=== PATIENT | female | born 1980 | race Caucasian/White ===

== ENCOUNTER → 2017-03-10 | Outpatient (CLI) | payer OTHER | LOC: FIMAGING 16:15 | PROVIDERS: ATTEND Internal Medicine Hematology & Oncology | DX: Z12.31 Encounter for screening mammogram for malignant neoplasm of breast (principal); Z80.3 Family history of malignant neoplasm of breast | CPT/HCPCS: G0202 ==

== ENCOUNTER → 2018-03-19 | Outpatient (CLI) | payer OTHER | LOC: FIMAGING 09:48 | PROVIDERS: ATTEND Internal Medicine Hematology & Oncology | DX: Z12.31 Encounter for screening mammogram for malignant neoplasm of breast (principal); Z80.3 Family history of malignant neoplasm of breast ==

== ENCOUNTER 2018-10-28 11:27 | Outpatient (CLI) | payer OTHER ==
[2018-10-28] MEDS ORDERED: MIDAZOLAM 2 MG/2 ML VIAL IVP PRN (11:40)
[2018-10-28] MEDS ORDERED: fentaNYL 100 MCG/2 ML INJ IVP PRN (11:40)
[2018-10-28] MEDS ORDERED: MEPERIDINE 25 MG/ML SYR IVP PRN (11:40)
[2018-10-28] MEDS ORDERED: ALTEPLASE 2 MG VIAL IVP PRN (11:40)
[2018-10-28] MEDS ORDERED: FLUMAZENIL 0.5 MG/5 ML MDV IVP PRN (11:40)
[2018-10-28] MEDS ORDERED: HEPARIN 10,000 UNIT/10 ML MDV (1,000 UNIT/ML) IVP PRN (11:40)
[2018-10-28] MEDS ORDERED: NALOXONE HCL 0.4 MG/ML INJ IVP PRN (11:40)
[2018-10-28] MEDS ORDERED: NS 1,000 ML IV SCH (11:45)
[2018-10-28] MEDS ORDERED: fentaNYL 100 MCG/2 ML INJ ONE ×2 (11:55→13:58)
[2018-10-28] MEDS ORDERED: FLUMAZENIL 0.5 MG/5 ML MDV IVP ONE (11:55)
[2018-10-28] MEDS ORDERED: NALOXONE HCL 0.4 MG/ML INJ ONE (11:55)
[2018-10-28] MEDS ORDERED: MIDAZOLAM 2 MG/2 ML VIAL ONE ×2 (11:55→13:58)
--- NOTE | 2018-10-28 12:56 | PDGENHP ---
History & Physical Chief Complaint: family hx breast cancer, claustrophobic Cardiorespiratory Assessment: regular heart rate, clear lungs
--- NOTE | 2018-10-28 12:56 | PDPROPOC ---
Sedation Plan of Care Sedation Plan of Care: vital signs stable, mental status noted, patient educated of risks, benefits, alternatives, patient can tolerate sedation ASA Classification: ASA 1 Planned drugs: fentanyl, midazolam Mallampati Score: Class 1 Mallampati Reference Image: Patient passed 3-3-2 rule?: Yes
[2018-10-28] MEDS ORDERED: GADOBUTROL 10 ML VIAL IVP ONE (13:00)
[2018-10-28] MEDS ORDERED: ONDANSETRON 4 MG/2 ML VIAL IVP PRN (14:34)
[2018-10-28] MEDS ORDERED: ACETAMINOPHEN 325 MG TAB PO PRN (14:34)
[2018-10-28 15:32] VITALS: BP 107/74
== END 2018-10-28 15:32 | disposition home or self-care (01) ==
LOC: FIMAGING 11:27
PROVIDERS: ATTEND Internal Medicine Hematology & Oncology
PROC: BH3 Imaging, Skin, Subcutaneous Tissue and Breast, Magnetic Resonance Imaging (MRI) (ICD-10-PCS; principal; 2018-10-28 14:16)
DX: Z12.39 Encounter for other screening for malignant neoplasm of breast (principal); F40.240 Claustrophobia; Z80.3 Family history of malignant neoplasm of breast; Z80.41 Family history of malignant neoplasm of ovary; Z80.8 Family history of malignant neoplasm of other organs or systems
CPT/HCPCS: A9585; C8908; J2250; J2310; J3010